=== PATIENT | female | born 2000 | race Two or more races ===

== ENCOUNTER 2023-12-29 15:50 | Outpatient (CLI) | payer OTHER ==
[~2023-12-29 15:50] MED LIST: FOLIC ACID20 MG; MACROBID 100 M100 MG PO; TUSSIN100 MG/51 PO
== END 2023-12-29 15:51 | disposition home or self-care (01) ==
LOC: PRENATAL 15:50
PROVIDERS: ATTEND Obstetrics & Gynecology Maternal & Fetal Medicine
DX: O35.9XX0 Maternal care for (suspected) fetal abnormality and damage, unspecified, not applicable or unspecified (principal); O35.3XX0 Maternal care for (suspected) damage to fetus from viral disease in mother, not applicable or unspecified; O44.02 Complete placenta previa NOS or without hemorrhage, second trimester; Z3A.19 19 weeks gestation of pregnancy

== ENCOUNTER 2024-02-25 11:21 | Outpatient (CLI) | payer OTHER ==
[2024-02-25 11:06] VITALS: BP 101/67
[2024-02-25] MEDS ORDERED: PRENATABS RX T1 EACH PO (11:34)
[2024-02-25 12:03] LABS: PH,URINE 5.5 (5.0-8.0); URINE APPEARANCE Cloudy; URINE BILIRRUBIN Negative (NEGATIVE); URINE BLOOD Negative; URINE COLOR Yellow; URINE GLUCOSE Negative (NEGATIVE); URINE LEUKOCYTE Large; URINE NITRATE Negative; URINE PROTEIN Trace (NEGATIVE)
[2024-02-25 12:08] LABS: URINE KETONE >=160 (NEGATIVE)
[2024-02-25 12:28] LABS: HEMOGLOBIN 10.4 g/dL (12.0-15.00); PLATELET COUNT 205 K/uL (150-450); RED CELL DISTRIBUTION WIDTH 14.4 % (11.5-14.5)
[2024-02-25 12:30] LABS: HEMATOCRIT 30.6 % (36.0-45.00); MEAN CELL VOLUME 80.3 fL (80.00-100.00); MEAN CORPUSCULAR HEMOGLOBIN 27.2 pg (27.00-32.0); MEAN CORPUSCULAR HGB CONC 33.9 g/dl (32.0-36.0); RED BLOOD COUNT 3.81 M/uL (4.00-6.00)
[2024-02-25 13:36] LABS: URINE BACTERIA 5080.2 uL (0.0-1933); URINE EPITHELIAL CELLS 42.3 uL (0.0-38.8); URINE RBC 5.3 uL (0.0-20.8); URINE WBC 657.4 uL (0.0-23.2)
[2024-02-25] MEDS ORDERED: CEFAZOLIN SODIUM 1,000 MG VIAL IV SCH (14:00)
[2024-02-25] MEDS ORDERED: RINGERS SOLUTION,LACTATED 1,000 ML IV SCH (15:15)
[2024-02-25 15:44] VITALS: BP 92/52
[2024-02-25] MEDS ORDERED: ACETAMINOPHEN 500 MG GEL..CAP PO ONE (19:00)
[2024-02-25 19:28] VITALS: BP 95/59
[2024-02-25 23:27] VITALS: BP 98/62
[2024-02-26 03:18] VITALS: BP 93/60
[2024-02-26 07:13] VITALS: BP 95/63
[2024-02-26 11:17] VITALS: BP 100/64; O2SAT 99
[2024-02-26 14:00] VITALS: BP 110/65
== END 2024-02-26 14:00 | disposition home or self-care (01) ==
LOC: OBS/DEL 11:21
PROVIDERS: Obstetrics & Gynecology; ATTEND Specialist
DX: O23.43 Unspecified infection of urinary tract in pregnancy, third trimester (principal); N39.0 Urinary tract infection, site not specified; R10.2 Pelvic and perineal pain; Z3A.28 28 weeks gestation of pregnancy

== ENCOUNTER → 2024-03-30 15:20 | Outpatient (CLI) | payer OTHER ==
[~2024-03-30 15:20] MED LIST changes: +PRENATABS RX T1 EACH PO
== END | disposition home or self-care (01) ==
LOC: PRENATAL 15:20
PROVIDERS: ATTEND Obstetrics & Gynecology Maternal & Fetal Medicine
DX: O26.849 Uterine size-date discrepancy, unspecified trimester (principal); O36.8199 Decreased fetal movements, unspecified trimester, other fetus; Z3A.33 33 weeks gestation of pregnancy

== ENCOUNTER 2024-04-11 00:22 | Outpatient (CLI) | payer OTHER ==
[2024-04-10 23:32] VITALS: BP 114/75
[2024-04-11] MEDS ORDERED: ACETAMINOPHEN 500 MG GEL..CAP PO PRN (00:45)
[2024-04-11] MEDS ORDERED: TERBUTALINE SULFATE 1 MG/ML AMPUL SUBCUTANEO ONE (00:45)
[2024-04-11] MEDS ORDERED: RINGERS SOLUTION,LACTATED 1,000 ML IV SCH (00:45)
[2024-04-11 01:28] LABS: MEAN CELL VOLUME 71.3 fL (80.00-100.00); MEAN CORPUSCULAR HEMOGLOBIN 22.4 pg (27.00-32.0); MEAN CORPUSCULAR HGB CONC 31.6 g/dl (32.0-36.0); PLATELET COUNT 143 K/uL (150-450); RED BLOOD COUNT 3.92 M/uL (4.00-6.00)
[2024-04-11 01:29] LABS: HEMOGLOBIN 8.8 g/dL (12.0-15.00); RED CELL DISTRIBUTION WIDTH 18.9 % (11.5-14.5)
[2024-04-11 01:38] LABS: INR < 0.93; PARTIAL THROMBOPLASTIN TIME 21.1 SECONDS (22.0-34.0); PROTHROMBIN TIME 9.8 SECONDS (9.0-11.5)
[2024-04-11 01:42] LABS: ALBUMIN 2.2 gm/dL (3.4-5.0); BILIRUBIN TOTAL 0.36 mg/dL (0.3-1.2); CALCIUM 8.3 mg/dL (8.5-10.1); CREATININE SERUM 0.56 mg/dL (0.55-1.02); GLOBULINA 3.1 G/DL (2.4-3.5); POTASSIUM 4.04 mEq/L (3.5-5.1); TOTAL PROTEIN 5.3 gm/dL (6.4-8.2)
[2024-04-11 04:10] VITALS: BP 115/69
[2024-04-11 06:36] VITALS: BP 104/66; O2SAT 100
[2024-04-11] MEDS ORDERED: FERROUS SULFAT325 MG PO (08:03)
[2024-04-11 08:59] VITALS: BP 104/66
== END 2024-04-11 09:24 | disposition home or self-care (01) ==
LOC: OBS/DEL 00:22
PROVIDERS: ATTEND Specialist
DX: O47.03 False labor before 37 completed weeks of gestation, third trimester (principal); Z3A.34 34 weeks gestation of pregnancy

== ENCOUNTER 2024-04-26 04:12 | Inpatient (IN) | payer OTHER ==
[~2024-04-26] VITALS: Ht 152.4 cm; Wt 56.7 kg
[2024-04-26] VITALS (11 sets, daily range): BP systolic 129–150; BP diastolic 73–93
[~2024-04-26 04:12] MED LIST changes: +FERROUS SULFAT325 MG PO
[2024-04-26] MEDS ORDERED: RINGERS SOLUTION,LACTATED 1,000 ML IV SCH (04:30)
[2024-04-26] MEDS ORDERED: AMPICILLIN SODIUM 2,000 MG VIAL IV ONE (04:30)
[2024-04-26 05:06] LABS: URINE APPEARANCE Turbid; URINE BILIRRUBIN Negative (NEGATIVE); URINE BLOOD Moderate; URINE COLOR Yellow; URINE GLUCOSE Negative (NEGATIVE); URINE KETONE Negative (NEGATIVE); URINE LEUKOCYTE Negative; URINE NITRATE Negative; URINE UROBILINOGEN 0.2 E.U./dl
[2024-04-26 05:10] LABS: URINE BACTERIA 522.8 uL (0.0-1933); URINE CAST 5.47 uL (0.0-1.40); URINE EPITHELIAL CELLS 60.1 uL (0.0-38.8); URINE RBC 944.4 uL (0.0-20.8); URINE WBC 275.8 uL (0.0-23.2)
[2024-04-26 05:13] LABS: HEMATOCRIT 27.3 % (36.0-45.00); MEAN CORPUSCULAR HGB CONC 32.1 g/dl (32.0-36.0); PLATELET COUNT 181 K/uL (150-450); RED CELL DISTRIBUTION WIDTH 19.6 % (11.5-14.5)
[2024-04-26 05:18] LABS: HEMOGLOBIN 8.8 g/dL (12.0-15.00); MEAN CELL VOLUME 68.3 fL (80.00-100.00)
[2024-04-26 05:22] LABS: INR < 0.93; PARTIAL THROMBOPLASTIN TIME 22.2 SECONDS (22.0-34.0); PROTHROMBIN TIME 9.9 SECONDS (9.0-11.5)
[2024-04-26 05:34] LABS: URINE PROTEIN 100 (NEGATIVE)
[2024-04-26 05:35] LABS: URINE CRYSTALS MODERATE /HPF
[2024-04-26 05:38] LABS: ALBUMIN 2.2 gm/dL (3.4-5.0); BILIRUBIN TOTAL 0.28 mg/dL (0.3-1.2); CALCIUM 8.5 mg/dL (8.5-10.1); CREATININE SERUM 0.53 mg/dL (0.55-1.02); GFR 141.72; GLOBULINA 3.4 G/DL (2.4-3.5); POTASSIUM 4.28 mEq/L (3.5-5.1); TOTAL PROTEIN 5.6 gm/dL (6.4-8.2)
[2024-04-26] MEDS ORDERED: MISOPROSTOL 50 MCG TABLET VAG STA (05:53)
[2024-04-26] MEDS ORDERED: PROMETHAZINE HCL 25 MG/ML AMPUL IV STA ×2 (08:35→13:21)
[2024-04-26] MEDS ORDERED: MEPERIDINE HCL/PF 50 MG/ML VIAL IV STA ×2 (08:35→13:21)
[2024-04-26] MEDS ORDERED: AMPICILLIN SODIUM 1,000 MG VIAL IV SCH (09:00)
[2024-04-26] MEDS ORDERED: OXYTOCIN 500 ML IV ONE (17:15)
[2024-04-26] MEDS ORDERED: ACETAMINOPHEN 325 MG TABLET PO PRN (18:30)
[2024-04-26] MEDS ORDERED: CHLORHEXIDINE GLUCONATE 120 ML BOTTLE TOP ONE (18:30)
[2024-04-26] MEDS ORDERED: OxyCODONE HCL/APAP UD (PERCOCET) PO PRN (18:30)
[2024-04-26] MEDS ORDERED: OXYTOCIN 20 UNITS/1000ML RL PIGGYBAG IV ONE (18:30)
[2024-04-26] MEDS ORDERED: LIDOCAINE HCL 1% 10ML VIAL IJ ONE (18:30)
[2024-04-26] MEDS ORDERED: ERYTHROMYCIN BASE OPHT 1GM EACH TUBE OP ONE (18:30)
[2024-04-27 03:06] VITALS: BP 138/89
[2024-04-27 03:28] LABS: HEMATOCRIT 30.3 % (36.0-45.00); PLATELET COUNT 181 K/uL (150-450); RED BLOOD COUNT 4.42 M/uL (4.00-6.00); RED CELL DISTRIBUTION WIDTH 19.9 % (11.5-14.5)
[2024-04-27 03:30] LABS: MEAN CELL VOLUME 68.6 fL (80.00-100.00)
[2024-04-27 03:31] LABS: HEMOGLOBIN 9.4 g/dL (12.0-15.00); MEAN CORPUSCULAR HEMOGLOBIN 21.2 pg (27.00-32.0)
[2024-04-27 08:55] VITALS: BP 138/88
[2024-04-27] MEDS ORDERED: HYDROCORTISONE 2.5% 30 GM TUBE RECTAL SCH (09:00)
[2024-04-27] MEDS ORDERED: BENZOCAINE/MENTHOL 90 ML BOTTLE TOP SCH (09:00)
[2024-04-27] MEDS ORDERED: SOD FERRIC GLUC COMPLX/SUCROSE 62.5 MG in 0.9 % SODIUM CHLORIDE 50 ML IV SCH (09:00)
[2024-04-27] MEDS ORDERED: FERROUS SULFATE 325 MG TABLET.EC PO SCH (09:00)
[2024-04-27 16:00] VITALS: BP 116/80
[2024-04-28 00:42] VITALS: BP 126/78
[2024-04-28 08:00] VITALS: BP 135/88
== END 2024-04-28 14:11 | disposition home or self-care (01) | DRG 807 ==
LOC: LDR 04:12 → OB/GYN 21:02
PROVIDERS: ADMIT Specialist; ATTEND Specialist
PROC: 10E0XZZ Delivery of Products of Conception, External Approach (ICD-10-PCS; principal; 2024-04-26)
PROC: 0W8NXZZ Division of Female Perineum, External Approach (ICD-10-PCS; 2024-04-26)
PROC: 3E033VJ Introduction of Other Hormone into Peripheral Vein, Percutaneous Approach (ICD-10-PCS; 2024-04-26)
PROC: 3E0P7VZ Introduction of Hormone into Female Reproductive, Via Natural or Artificial Opening (ICD-10-PCS; 2024-04-26)
PROC: 4A1HXCZ Monitoring of Products of Conception, Cardiac Rate, External Approach (ICD-10-PCS; 2024-04-26)
DX: O60.14X0 Preterm labor third trimester with preterm delivery third trimester, not applicable or unspecified (principal); O42.013 Preterm premature rupture of membranes, onset of labor within 24 hours of rupture, third trimester; O99.02 Anemia complicating childbirth; D64.9 Anemia, unspecified; Z37.0 Single live birth; Z3A.36 36 weeks gestation of pregnancy